=== PATIENT | female | born 1970 | race Caucasian/White ===

== ENCOUNTER 2016-05-07 15:27 | Outpatient (CLI) | payer OTHER ==
--- NOTE | 2016-05-07 16:53 | Diagnostic Imaging Report ---
[facility] [id number] [facility].[address] [id number] Report Submission Date: May 07, 2016 4:45:45 PM ALLERGY NURSE Patient Study Name: UDAY PEREZ V Date: May 07, 2016 4:12:12 PM ALLERGY NURSE Modality Type: CR Gender: F Description: SPINE : 68 Institution: [facility] Physician: HIRAM MONTANEZ Cervical spine, 4 views. History: Neck pain and right arm radiculopathy for 2 months. Findings: The vertebral body height and vertebral body alignment are normal. The base of the odontoid process is intact. No significant intervertebral disc space narrowing is present. There is minimal calcification of the anterior marginal ligament at the C4/C5 level. There is no prevertebral soft tissue swelling. Impression: 1. No acute osseous abnormality significant spondylosis. Electronically signed on May 07, 2016 4:45:45 PM ALLERGY NURSE by: Asa MENSAH
== END 2016-05-07 15:30 ==
LOC: RAD 15:27
PROVIDERS: ATTEND Family Medicine
DX: M54.2 Cervicalgia (principal); M54.10 Radiculopathy, site unspecified; R30.0 Dysuria
CPT/HCPCS: 72040; 87086